=== PATIENT | female | born 1985 | race Caucasian/White ===

== ENCOUNTER 2016-12-27 23:06 | Emergency (ER) | payer SELFPAY ==
[2016-12-27 23:29] VITALS: BP 118/83
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
--- NOTE | 2016-12-28 06:37 | Diagnostic Imaging Report ---
BRYSON HENDERSON (SVEN) - ER [facility] [address] [facility].[address] [address] Report Submission Date: Dec 27, 2016 11:44:53 PM CDT Patient Study Name: NICOLE BUTT Date: Dec 27, 2016 11:15:33 PM CDT Modality Type: CR Gender: F Description: SHOULDER : 83 Institution: [facility] Physician: BRYSON HENDERSON (SVEN) - ER Examination: Plain film shoulder History: Fall Comparison exams: None provided Findings: 4 views of the shoulder demonstrate normal cortical margins. No evidence for fracture or dislocation. No soft tissue abnormality Impression: No fracture Electronically signed on Dec 27, 2016 11:44:53 PM CDT by: Bryson PITT
== END 2016-12-27 23:45 | disposition home or self-care (01) ==
LOC: ED 23:06
DX: S40.011A Contusion of right shoulder, initial encounter (principal); X58.XXXA Exposure to other specified factors, initial encounter; Y93.9 Activity, unspecified; Y99.9 Unspecified external cause status
CPT/HCPCS: 73030; 99282; 99283